=== PATIENT | male | born 1955 | race Caucasian/White ===

== ENCOUNTER → 2023-02-03 | Outpatient (CLI) | payer MEDICARE, OTHER ==
--- NOTE | 2023-02-04 11:14 | MR ---
EXAMINATION TYPE: MR Prostate wo/w con DATE OF EXAM: 02/03/2023 9:22 AM COMPARISON: None . CLINICAL INDICATION:Male, 67 years old with history of R97.20 Elevated PSA; TECHNIQUE: Multi-planar, multi-sequence imaging of the pelvis is performed prior to and following the uncomplicated administration of bolus intravenous gadolinium. CONTRAST: 10 Gadavist Interpretive Criteria: PI-RADS v2.1 SERUM PSA: 22.1 on 01/08/2023 SURGICAL PATHOLOGY: No data available. FINDINGS: Prostatic dimensions: 5.4 x 4.9 x 3.8 cm. Ellipsoid Volume:52.65 (PSA density=0.42 ng/mL/mL) CENTRAL GLAND (Central and Transition Zones/CZ+TZ): Multiple bilateral, heterogenous appearing hypertrophic stromal nodules, without suspicious lesion. M edian lobe hypertrophy with protrusion into the base of the bladder. (PI-RADS 2) PERIPHERAL ZONE (PZ): There is a low T2 signal area extending from the base of the predominantly right peripheral zone near midline measuring 25 x 16 x 10 mm which does not demonstrate restricted diffusion. This does appear to extend towards the seminal vesicles on the right and may cross midline series 501 image 18. This a neva does have low ADC signal. In the left apex there is a 9 mm area of low T2 signal without associated restricted diffusion but do es demonstrate enhancement and has low ADC signal. Additional bilateral linear, indistinct wedgelike areas of low ADC, and low T2 signal, No evidence of masslike abnormality, or localized perfusional hypervascularity, to further suggest a focus of clini rusty significant prostate cancer. (PI-RADS 2) SEMINAL VESICLES (SV): Symmetric and unremarkable. PERIPROSTATIC TISSUES: Unremarkable. LYMPH NODES: No enlarged pelvic lymph node. REMAINING PELVIS: Bladder wall is within normal limits given distention. No abnormal free or organized intrapelvic fluid collection. No pathologic bowel dilation or mural thickening. Scattered colonic diverticula. OSSEOUS STRUCTURES: No suspicious osseous abnormality. IMPRESSION: 1. PI-RADS 3 lesion of low T2 signal measuring at least 25 x 16 x 10 mm which does not have the class ic restricted diffusion but is suspicious. Tissue sampling is recommended. 2. BI-RADS 3 lesion in the left peripheral zone apex with postcontrast enhancement measuring 9 mm and without diffusion restriction.. Tissue sampling is recommended. 2. Moderate BPH, estimated gland volume 52.65 mL.
== END | disposition home or self-care (01) ==
LOC: RADMRIMAIN 08:08
PROVIDERS: ATTEND Urology
DX: N40.0 Benign prostatic hyperplasia without lower urinary tract symptoms (principal); N42.9 Disorder of prostate, unspecified; R97.20 Elevated prostate specific antigen [PSA]
CPT/HCPCS: 72197; A9585

== ENCOUNTER → 2023-04-16 | Outpatient (CLI) | payer MEDICARE, OTHER ==
--- NOTE | 2023-04-17 11:14 | PE ---
EXAMINATION TYPE: PET CT fusion skull to thigh DATE OF EXAM: 04/16/2023 CLINICAL INDICATION:Male, 68 years old with history of C61; TECHNIQUE: Following the intravenous administration of 5.7 mCi of Ga-68 Illuccix (PSMA), whole body images are performed from the skull base to the midthigh. Images are reviewed on the computer in th e coronal, axial, and sagittal planes. Reconstructed rotating images are created on independent work station and reviewed on the computer. A non-contrast CT is performed in conjunction with the PET sc an. COMPARISON: CT None, PET/CT None, MRI prostate 02/03/2023 FINDINGS: Mediastinal SUV mean is 0.4. Hepatic parenchyma SUV mean is 1.8. SKULL BASE AND NECK: No suspicious radiotracer activity. CHEST, MEDIASTINUM, AND HILAR REGION: Right middle lobe nodule measuring 17 x 14 mm and does not demonstrate increased radiotracer activity . ABDOMEN AND PELVIS: No suspicious radiotracer activity. Primary prostate lesion within the posterior gland max SUV 0.6. MUSCULOSKELETAL STRUCTURES: No suspicious radiotracer activity. OTHER CT: Atherosclerosis of the arterial vasculature. Is motion artifact in the head and neck. Coron juliano artery cusp patient's aortic valve calcifications are present. Colonic diverticula. Fat-containin g umbilical hernia. Nodularity to liver suggesting cirrhosis. Hyperdense right renal cysts compatible with proteinaceous/hemorrhagic cyst. IMPRESSION: 1. Abnormal FDG activity in the area of concern on the prior MRI compatible with primary prosthetic adenocarcinoma. No evidence for radiotracer avid metastatic disease at this time. 2. Right middle lobe 17 x 14 mm nodule which does not demonstrate increased radiotracer uptake like the primary malignancy. Surveillance CT chest. Correlation with priors at outside institutions may be of benefit. Consideration for biopsy should be considered. 3. Nodular border to the liver correlate for cirrhosis.
== END | disposition home or self-care (01) ==
LOC: RADPETMAIN 07:22
PROVIDERS: ATTEND Urology
DX: C61 Malignant neoplasm of prostate (principal); R91.1 Solitary pulmonary nodule; K76.89 Other specified diseases of liver
CPT/HCPCS: 78815; A9596